=== PATIENT | female | born 1955 | race Caucasian/White ===

== ENCOUNTER 2020-04-04 15:15 | IRF | payer OTHER, MEDICARE, SELFPAY ==
[2020-04-04 15:10] VITALS: BP 101/66; PULSE 98; RESP 18; TEMP 36.8; O2SAT 99; BMI 21.9
--- NOTE | 2020-04-04 15:10 | ADMGEN ---
This patient, Usha Hardin, was admitted to [facility] Room 223-01. Patient/family oriented to hospital policies and general routines including ID bracelet, bed and alarms, visiting hours, pain management, procedures, bathroom and other care routines, personal items, smoking policy, room service/diet, and visiting hours. Valuables list has been completed. Information on how to activate the Rapid Response Team has been discussed. Patient/Family are encouraged to report perceived risks to care and to ask questions if they do not understand what they are told or what they should do.
--- NOTE | 2020-04-04 15:32 | ADMGEN ---
This patient, Usha Hardin, was admitted to [facility] Room 223-01. Patient/family oriented to hospital policies and general routines including ID bracelet, bed and alarms, visiting hours, pain management, procedures, bathroom and other care routines, personal items, smoking policy, room service/diet, and visiting hours. Valuables list has been completed. Information on how to activate the Rapid Response Team has been discussed. Patient/Family are encouraged to report perceived risks to care and to ask questions if they do not understand what they are told or what they should do. , transported by family car
[2020-04-04 16:48] VITALS: BMI 21.9
[2020-04-04] MEDS: FUROSEMIDE 40 MG TABLET PO (18:44)
[2020-04-04] MEDS: APIXABAN 5 MG TABLET PO (18:44)
[2020-04-04] MEDS: SACUBITRIL/VALSARTAN 49-51 MG TABLET 1 TABLET PO (18:44)
[2020-04-04] MEDS: metFORMIN HCL 500 MG TABLET PO (18:44)
[2020-04-04 18:45] VITALS: PULSE 82
[2020-04-04] MEDS: METOPROLOL TARTRATE 12.5 MG TABLET PO (18:45)
[2020-04-04] MEDS: SUCRALFATE 1 GM TABLET PO ×2 (18:45→20:21)
[2020-04-04 22:00] VITALS: BP 87/58; PULSE 91; RESP 18; TEMP 36.6; O2SAT 99
[2020-04-05 05:07] LABS: Glucose Point of Care 135 (65-105)
[2020-04-05 06:00] VITALS: BP 110/58; PULSE 72; RESP 16; TEMP 37.1; O2SAT 99
[2020-04-05 06:42] LABS: Basophils Absolute Auto 0.1 K/mm3 (0.0-0.1); Basophils Percent Auto 0.5 % (0.2-1.2); Eosinophils Absolute Auto 0.2 K/mm3 (0-0.3); Eosinophils Percent Auto 1.8 % (0-4.4); Hematocrit 42.1 % (37.0-47.0); Hemoglobin 13.8 g/dL (12.0-15.0); Immature Granulocyte Absolute 0.03 K/mm3 (0.00-0.031); Immature Granulocyte Percent A 0.3 % (0-0.5); Lymphocytes Absolute Auto 2.36 K/mm3 (0.9-3.2); Lymphocytes Percent Auto 22.8 % (18.3-44.2); Mean Corpuscular HGB Conc 32.8 g/dl (32-36); Mean Corpuscular Hemoglobin 29.7 pg (26-34); Mean Corpuscular Volume 90.7 fl (80-100); Mean Platelet Volume 10.8 fl (7.4-10.4); Monocytes Absolute Auto 0.8 K/mm3 (0.1-0.6); Monocytes Percent Auto 7.3 % (2.6-8.5); Neutrophils Percent Auto 67.3 % (45.5-73.1); Platelet Count Result 303 k/mm3 (150-375); Red Blood Count 4.64 M/mm3 (4.2-5.4); Red Cell Distribution Width 12.1 % (11.5-14.5); White Blood Count 10.4 K/mm3 (4.5-10.0)
[2020-04-05 06:58] LABS: Blood Urea Nitrogen 16 mg/dL (7-17); Carbon Dioxide 24 mmol/L (22-30); Chloride 105 mmol/L (98-107); Cholesterol 128 mg/dL (0-200); Estimated CRCL calculation 59 ml/min; Estimated Glomerular Filt Rate > 60; Glucose 125 mg/dL (65-105); HDL Direct 34 mg/dL; Sodium 137 mmol/L (137-145); Triglycerides 103 mg/dL (<150)
[2020-04-05 07:09] LABS: Hemoglobin A1C 7.1 % (<5.7); LDL Cholesterol Direct 69 mg/dL
[2020-04-05] MEDS: ATORVASTATIN 40 MG TABLET PO (08:53)
[2020-04-05] MEDS: APIXABAN 5 MG TABLET PO ×2 (08:53→17:56)
[2020-04-05] MEDS: FUROSEMIDE 40 MG TABLET PO ×2 (08:53→17:56)
[2020-04-05] MEDS: PANTOPRAZOLE 40 MG TABLET PO (08:54)
[2020-04-05] MEDS: PARoxetine 20 MG TABLET PO (08:54)
[2020-04-05] MEDS: PYRIDOXINE HCL 50 MG TABLET PO (08:54)
[2020-04-05] MEDS: ISONIAZID 100 MG TABLET 300 MG PO (08:54)
[2020-04-05] MEDS: metFORMIN HCL 500 MG TABLET PO ×2 (08:54→17:56)
[2020-04-05] MEDS: SACUBITRIL/VALSARTAN 49-51 MG TABLET 1 TABLET PO ×2 (08:55→17:56)
[2020-04-05] MEDS: SPIRONOLACTONE 25 MG TABLET PO (08:55)
[2020-04-05] MEDS: SUCRALFATE 1 GM TABLET PO ×4 (08:55→20:13)
[2020-04-05 13:43] VITALS: PULSE 72
[2020-04-05] MEDS: METOPROLOL TARTRATE 12.5 MG TABLET PO ×2 (13:43→20:14)
[2020-04-05 14:00] VITALS: BP 118/56; PULSE 78; RESP 18; TEMP 36.8; O2SAT 99
[2020-04-05 17:05] LABS: Glucose Point of Care 249 (65-105)
[2020-04-05 20:14] VITALS: PULSE 88
[2020-04-05 22:00] VITALS: BP 96/52; PULSE 82; RESP 18; TEMP 36.9; O2SAT 100
[2020-04-06 05:50] VITALS: BP 110/62; PULSE 85; RESP 18; TEMP 36.5; O2SAT 98
[2020-04-06 06:39] VITALS: PULSE 88
[2020-04-06] MEDS: METOPROLOL TARTRATE 12.5 MG TABLET PO ×3 (06:39→20:35)
[2020-04-06 06:52] LABS: Glucose Point of Care 142 (65-105)
[2020-04-06] MEDS: FUROSEMIDE 40 MG TABLET PO ×2 (09:08→17:44)
[2020-04-06] MEDS: ATORVASTATIN 40 MG TABLET PO (09:08)
[2020-04-06] MEDS: APIXABAN 5 MG TABLET PO ×2 (09:08→17:44)
[2020-04-06] MEDS: PANTOPRAZOLE 40 MG TABLET PO (09:09)
[2020-04-06] MEDS: ISONIAZID 100 MG TABLET 300 MG PO (09:09)
[2020-04-06] MEDS: metFORMIN HCL 500 MG TABLET PO ×2 (09:09→17:44)
[2020-04-06] MEDS: SPIRONOLACTONE 25 MG TABLET PO (09:10)
[2020-04-06] MEDS: PYRIDOXINE HCL 50 MG TABLET PO (09:10)
[2020-04-06] MEDS: SUCRALFATE 1 GM TABLET PO ×4 (09:10→20:36)
[2020-04-06] MEDS: PARoxetine 20 MG TABLET PO (09:10)
[2020-04-06] MEDS: SACUBITRIL/VALSARTAN 49-51 MG TABLET 1 TABLET PO ×2 (09:10→17:44)
[2020-04-06 11:49] LABS: Glucose Point of Care 128 (65-105)
[2020-04-06 13:23] VITALS: PULSE 88
--- NOTE | 2020-04-06 13:38 | WPDNEURORHBP ---
Subjective Date/time seen: S/P LMCA stroke withAF,Hypertension,Hyperlipidemia,andHypothyrodism,,ONelequis,S/PThrombectomy,04/06/20 13:38 Review of Systems Review of Systems: All systems reviewed & are unremarkable except as noted in HPI and below Functional Status Ambulation Ability Ability to Ambulate 10 Feet: Minimum Assistance X 1 Ability to Ambulate 50 Feet With 2 Turns: Minimum Assistance X 2 Ability to Ambulate 150 Feet: Minimum Assistance X 2 Ambulation Assistive Devices: None Exam Const: General: cooperative and no acute distress Eyes: General: appearance normal, both eyes and all related structures Neck: Neck: full ROM Resp: Effort & Inspection: normal respiratory effort Cardio: Rhythm: abnormal rhythm GI: Auscultation: normal bowel sounds Skin: General skin exam: no rashes or lesions noted Neuro: General: oriented to person Cranial nerves: Yes Equal, round and reactive pupils present, Yes Bilaterally intact EOM present and Yes Midline tongue present Speech: Abnormal speech present Motor exam (neuro): Abnormal motor strength present Sensory Exam: Sensory deficit (Neuro) Extrem: General: normal to inspection Psych: Appearance: grossly normal Objective Data Vital Signs Vital Signs: Vital Signs - 24 hr 04/05/20 13:43 04/05/20 14:00 04/05/20 20:14 Temperature 36.8 C Pulse Rate 72 78 88 Respiratory Rate 18 Blood Pressure 118/56 L Pulse Oximetry 99 04/05/20 22:00 04/06/20 05:50 04/06/20 06:39 Temperature 36.9 C 36.5 C Pulse Rate 82 85 88 Respiratory Rate 18 18 Blood Pressure 96/52 L 110/62 Pulse Oximetry 100 98 04/06/20 13:23 Temperature Pulse Rate 88 Respiratory Rate Blood Pressure Pulse Oximetry Intake/Output Intake/Output: Intake & Output 04/03/20 04/04/20 04/05/20 04/06/20 23:59 23:59 23:59 23:59 Intake Total 240 720 240 Balance 240 720 240 Meds/Results Medications: Active Medications Generic Name Dose Route Start Last Admin Trade Name Freq PRN Reason Stop Dose Admin Apixaban 5 mg 04/04/20 17:00 04/06/20 09:08 Eliquis PO 5 mg BID BK Administration Atorvastatin Calcium 40 mg 04/05/20 09:00 04/06/20 09:08 Lipitor PO 40 mg DAILY BK Administration Furosemide 40 mg 04/04/20 17:00 04/06/20 09:08 Lasix Tablet PO 40 mg BID BK Administration Isoniazid 300 mg 04/05/20 09:00 04/06/20 09:09 Isoniazid PO 05/05/20 09:01 300 mg DAILY BK Administration Metformin HCl 500 mg 04/04/20 17:00 04/06/20 09:09 Glucophage PO 500 mg BID BK Administration Metoprolol Tartrate 12.5 mg 04/05/20 14:00 04/06/20 13:23 Lopressor PO 12.5 mg Q8HR BK Administration Nitroglycerin 0.4 mg 04/04/20 16:14 Nitrostat Subl 0.4 Mg (1/150) SUBLINGUAL Q5M PRN Chest Pain Non-Formulary Medication 10 mg 04/05/20 09:00 Dapagliflozin [Farxiga] PO 05/05/20 09:01 DAILY BK Pantoprazole Sodium 40 mg 04/05/20 09:00 04/06/20 09:09 Protonix PO 40 mg QAM BK Administration Paroxetine HCl 20 mg 04/05/20 09:00 04/06/20 09:10 Paxil PO 20 mg QAM BK Administration Pyridoxine HCl 50 mg 04/05/20 09:00 04/06/20 09:10 Vitamin B-6 PO 50 mg DAILY BK Administration Sacubitril/Valsartan 1 tablet 04/04/20 17:00 04/06/20 09:10 Entresto 49 Mg-51 Mg Tablet PO 1 tablet BID [facility] Administration Spironolactone 25 mg 04/05/20 09:00 04/06/20 09:10 Aldactone PO 25 mg DAILY BK Administration Sucralfate 1 gm 04/04/20 17:00 04/06/20 13:23 Carafate PO 1 gm QID BK Administration Labs Labs: Laboratory Results - last 24 hr 04/05/20 04/06/20 04/06/20 16:55 06:21 11:37 POC Capillary Glucose 249 H 142 H 128 H Progress Note: A&P Assessment and Plan (1) CVA (cerebral vascular accident): Code(s): I63.9 - Cerebral infarction, unspecified Status: Acute (2) Atrial fibrillation: Code(s): I48.91 - Unspec
[2020-04-06 14:00] VITALS: BP 109/57; PULSE 82; RESP 20; TEMP 36.6; O2SAT 100
[2020-04-06 17:14] LABS: Glucose Point of Care 192 (65-105)
[2020-04-06 20:35] VITALS: PULSE 78
[2020-04-06 22:00] VITALS: BP 98/49; PULSE 77; RESP 18; TEMP 36.8; O2SAT 97
[2020-04-07 06:00] VITALS: BP 95/58; PULSE 66; RESP 19; TEMP 36.4; O2SAT 98
[2020-04-07 06:23] VITALS: PULSE 74
[2020-04-07] MEDS: METOPROLOL TARTRATE 12.5 MG TABLET PO ×2 (06:23→20:23)
[2020-04-07 07:03] LABS: Glucose Point of Care 144 (65-105)
[2020-04-07] MEDS: FUROSEMIDE 40 MG TABLET PO ×2 (09:18→17:43)
[2020-04-07] MEDS: ISONIAZID 100 MG TABLET 300 MG PO (09:18)
[2020-04-07] MEDS: ATORVASTATIN 40 MG TABLET PO (09:18)
[2020-04-07] MEDS: SACUBITRIL/VALSARTAN 49-51 MG TABLET 1 TABLET PO ×2 (09:18→17:43)
[2020-04-07] MEDS: SPIRONOLACTONE 25 MG TABLET PO (09:18)
[2020-04-07] MEDS: PANTOPRAZOLE 40 MG TABLET PO (09:18)
[2020-04-07] MEDS: PARoxetine 20 MG TABLET PO (09:18)
[2020-04-07] MEDS: metFORMIN HCL 500 MG TABLET PO ×2 (09:18→17:43)
[2020-04-07] MEDS: APIXABAN 5 MG TABLET PO ×2 (09:18→17:43)
[2020-04-07] MEDS: SUCRALFATE 1 GM TABLET PO ×4 (09:18→20:22)
[2020-04-07] MEDS: PYRIDOXINE HCL 50 MG TABLET PO (09:19)
--- NOTE | 2020-04-07 10:45 | RPD ---
INDIVIDUALIZED PLAN OF CARE FOR Usha Hardin Brief Synthesis of Pre-Admission Screen, Post-Admission Evaluation and Therapy Evaluations: The patient presents to rehab with a left MCA stroke. Comorbidities include atrial fibrillation, hypertension, hyperlipidemia, hypothyroidism, acute blood loss anemia, aphasia, dysphagia, status post thrombectomy, intraoperative right radial vasospasm, intraoperative left ICA vasospasm, coronary artery disease, heart failure with reduced EF, diabetes mellitus type 2, urinary tract infection, latent BP, and cytotoxic edema. The patient?s needs will be best met in an intensive program vs. at a lower level of care. The patient requires physician services for neurology services, medical oversight, and coordination of care. The patient needs physician monitoring and treatment of anemia, perioperative blood loss, intraoperative vasospasm with brachial artery dissection, urinary tract infection, monitoring for adverse reactions to new medications, monitoring of infection, and pain control. The patient requires nursing services for frequent neuro checks, anticoagulation therapy, medication management and education, pressure relief and skin care management, monitoring of labs, bowel and bladder training, diabetes management and education, IV administration, and fall/safety precautions. Deficits include:ADLs, Balance, Cognition, Endurance, Family Training/Education, Mobility, Pain Management, ROM, Safety, Speech, Strength, and Transfers. Change Room Attendant/Case Management for: Discharge Planning and Patient/Family Counseling Physical Therapy: 5 days per week for 60 minutes. Treatments may include: Therapeutic Exercise, Gait Training, Neuromuscular Re-education, Transfer Training, Community Reintegration, Bed Mobility, Patient/Family Education, Wheelchair Mobility Group Therapy/Concurrent Therapy Rationales: -Improve attention span during functional activities in a distracted environment. -Enhance problem solving and/or adequate judgment skills during functional activities in a distracted environment. -Promote increased safety awareness in a distracted environment to reduce fall risk with functional tasks, transfers, and ambulation to allow a more safe, self-sufficient return to the home environment. -Improve dynamic balance skills to promote safety and independence with functional activities in a distracted environment for maximum gain. Occupational Therapy: 5 days per week for 60 minutes. Treatments may include: Therapeutic Exercise, Therapeutic Activity, Cognitive Training, Self-Care Transfer Training, Community Reintegration, Home Management, Patient/Family Education, Wheelchair Mobility Training, Energy Conservation Training Group Therapy/Concurrent Therapy Rationales: -Allow therapist to observe and teach generalization and carry-over of skills learned in individual therapy. -Enhance problem solving and sequencing skills during therapeutic activities in a distracted environment. -Promote increased safety awareness in a realistic setting to reduce fall risk with functional tasks due to visual and verbal distractions. -Increase functional level with ADLs, ADL transfers and use of adaptive equipment through therapeutic activities with others while promoting safety to allow a more safe, self-sufficient return home. Speech Therapy: 5 days per week for 60 minutes. Treatments may include: Dysphasia Therapy, Speech/Language/Communication Therapy, Cognitive Training, Patient/Family Education Group Therapy/Concurrent Therapy - Rationale: -Allow therapist to observe and teach generalization and carry-over of skills learned in individual therapy. -Improve comprehension skills with complex or abstract ideas through discussion in a realistic setting. -Enhance problem solving skills with complex issues during activities in a distracted environment. -Promote increased memory skills and concentration in a distracted environment for a safe transition home
[2020-04-07 13:57] VITALS: BMI 21.9
[2020-04-07 14:00] VITALS: BP 72/58; PULSE 116; RESP 18; TEMP 36.7; O2SAT 97
--- NOTE | 2020-04-07 14:26 | PCNSR ---
On 04/07/20, the student, Viral Pal, provided care and completed [facility] documentation on this patient. I have reviewed the student's documentation and agree with the findings.
[2020-04-07 17:23] LABS: Glucose Point of Care 156 (65-105)
[2020-04-07 22:00] VITALS: BP 94/53; PULSE 84; RESP 20; TEMP 36.5; O2SAT 98
[2020-04-08 06:00] VITALS: BP 88/53; PULSE 88; RESP 16; TEMP 36.3; O2SAT 92
[2020-04-08 07:39] LABS: Glucose Point of Care 155 (65-105)
[2020-04-08 10:01] VITALS: PULSE 88
[2020-04-08] MEDS: metFORMIN HCL 500 MG TABLET PO ×2 (10:01→18:10)
[2020-04-08] MEDS: METOPROLOL TARTRATE 6.25 MG TABLET PO ×2 (10:01→20:55)
[2020-04-08] MEDS: SUCRALFATE 1 GM TABLET PO ×4 (10:01→20:54)
[2020-04-08] MEDS: metFORMIN HCL 250 MG TABLET PO ×2 (10:01→18:11)
[2020-04-08] MEDS: APIXABAN 5 MG TABLET PO ×2 (10:02→18:10)
[2020-04-08] MEDS: SACUBITRIL/VALSARTAN 49-51 MG TABLET 1 TABLET PO ×2 (10:02→18:11)
[2020-04-08] MEDS: SPIRONOLACTONE 25 MG TABLET PO (10:02)
[2020-04-08] MEDS: ATORVASTATIN 40 MG TABLET PO (10:02)
[2020-04-08] MEDS: ISONIAZID 100 MG TABLET 300 MG PO (10:03)
[2020-04-08] MEDS: FUROSEMIDE 40 MG TABLET PO ×2 (10:03→18:10)
[2020-04-08] MEDS: PARoxetine 20 MG TABLET PO (10:04)
[2020-04-08] MEDS: PYRIDOXINE HCL 50 MG TABLET PO (10:04)
[2020-04-08] MEDS: PANTOPRAZOLE 40 MG TABLET PO (10:04)
[2020-04-08 14:00] VITALS: BP 122/62; PULSE 78; RESP 18; TEMP 36.3; O2SAT 100
--- NOTE | 2020-04-08 14:20 | WPDNEURORHBP ---
Subjective Date/time seen: 04/08/20 14:20 Interval history: this 65-year-old woman is here due to stroke along with the history of atrial fibrillation she is doing fairly well denies any headache nausea and vomiting chest pain shortness of breath. Her blood sugar is relatively up so we had to increase the metformin does the blood pressure is also running relatively soft so we have cut back on her are metoprolol during the team conference she gets good fry with the PT and OT walking about 300 feet and her speech is also improving Review of Systems Review of Systems: All systems reviewed & are unremarkable except as noted in HPI and below Functional Status Ambulation Ability Ability to Ambulate 10 Feet: Standby Assistance Ability to Ambulate 50 Feet With 2 Turns: Standby Assistance Ability to Ambulate 150 Feet: Standby Assistance Ambulation Assistive Devices: None Transfers Ability Ability to Transfer In/Out of Chair: Standby Assistance Exam Const: General: comfortable and no acute distress HENMT: General nose exam: Normal nares present Mouth: Yes moist mucous membranes Eyes: General: appearance normal, both eyes and all related structures Neck: Neck: supple and no JVD Resp: Effort & Inspection: normal respiratory effort Auscultation: clear to auscultation bilaterally Cardio: Rate: regular rate Rhythm: regular rhythm GI: GI Palp: Yes Soft to palpation Auscultation: normal bowel sounds Skin: General skin exam: normal color and no rashes or lesions noted Neuro: Other: patient's overall neurological deficit is improving Extrem: General: normal to inspection Psych: Other: cognitive function is speech is improving Objective Data Vital Signs Vital Signs: Vital Signs - 24 hr 04/07/20 22:00 04/08/20 06:00 04/08/20 10:01 Temperature 36.5 C 36.3 C L Pulse Rate 84 88 88 Respiratory Rate 20 16 Blood Pressure 94/53 L 88/53 L Pulse Oximetry 98 92 Intake/Output Intake/Output: Intake & Output 04/05/20 04/06/20 04/07/20 04/08/20 23:59 23:59 23:59 23:59 Intake Total 720 720 720 480 Balance 720 720 720 480 Meds/Results Medications: Active Medications Generic Name Dose Route Start Last Admin Trade Name Freq PRN Reason Stop Dose Admin Apixaban 5 mg 04/04/20 17:00 04/08/20 10:02 Eliquis PO 5 mg BID BK Administration Atorvastatin Calcium 40 mg 04/05/20 09:00 04/08/20 10:02 Lipitor PO 40 mg DAILY BK Administration Furosemide 40 mg 04/04/20 17:00 04/08/20 10:03 Lasix Tablet PO 40 mg BID BK Administration Isoniazid 300 mg 04/05/20 09:00 04/08/20 10:03 Isoniazid PO 05/05/20 09:01 300 mg DAILY BK Administration Metformin HCl 500 mg 04/08/20 09:30 04/08/20 10:01 Glucophage PO 500 mg BID BK Administration Metformin HCl 250 mg 04/08/20 09:30 04/08/20 10:01 Glucophage PO 250 mg BID BK Administration Metoprolol Tartrate 6.25 mg 04/08/20 09:20 04/08/20 10:01 Lopressor PO 6.25 mg Q12HR BK Administration Nitroglycerin 0.4 mg 04/04/20 16:14 Nitrostat Subl 0.4 Mg (1/150) SUBLINGUAL Q5M PRN Chest Pain Non-Formulary Medication 10 mg 04/05/20 09:00 Dapagliflozin [Farxiga] PO 05/05/20 09:01 DAILY BK Pantoprazole Sodium 40 mg 04/05/20 09:00 04/08/20 10:04 Protonix PO 40 mg QAM BK Administration Paroxetine HCl 20 mg 04/05/20 09:00 04/08/20 10:04 Paxil PO 20 mg QAM BK Administration Pyridoxine HCl 50 mg 04/05/20 09:00 04/08/20 10:04 Vitamin B-6 PO 50 mg DAILY BK Administration Sacubitril/Valsartan 1 tablet 04/04/20 17:00 04/08/20 10:02 Entresto 49 Mg-51 Mg Tablet PO 1 tablet BID BK Administration Spironolactone 25 mg 04/05/20 09:00 04/08/20 10:02 Aldactone PO 25 mg DAILY BK Administration Sucralfate 1 gm 04/04/20 17:00 04/08/20 13:12 Carafate PO 1 gm QID BK Administration Labs Labs: Laboratory Results - las
[2020-04-08 16:49] LABS: Glucose Point of Care 156 (65-105)
[2020-04-08 20:55] VITALS: PULSE 80
[2020-04-08 22:00] VITALS: BP 94/59; PULSE 85; RESP 18; TEMP 36.9; O2SAT 100
[2020-04-09 05:53] VITALS: BP 99/55; PULSE 82; RESP 18; TEMP 37.1; O2SAT 98
[2020-04-09 07:13] LABS: Glucose Point of Care 141 (65-105)
[2020-04-09] MEDS: ISONIAZID 100 MG TABLET 300 MG PO (09:13)
[2020-04-09] MEDS: ATORVASTATIN 40 MG TABLET PO (09:13)
[2020-04-09] MEDS: FUROSEMIDE 40 MG TABLET PO ×2 (09:13→16:57)
[2020-04-09] MEDS: APIXABAN 5 MG TABLET PO ×2 (09:13→16:57)
[2020-04-09 09:14] VITALS: PULSE 80
[2020-04-09] MEDS: METOPROLOL TARTRATE 6.25 MG TABLET PO (09:14)
[2020-04-09] MEDS: metFORMIN HCL 500 MG TABLET PO ×2 (09:14→16:57)
[2020-04-09] MEDS: metFORMIN HCL 250 MG TABLET PO ×2 (09:14→16:57)
[2020-04-09] MEDS: PARoxetine 20 MG TABLET PO (09:15)
[2020-04-09] MEDS: SUCRALFATE 1 GM TABLET PO ×4 (09:15→20:41)
[2020-04-09] MEDS: SACUBITRIL/VALSARTAN 49-51 MG TABLET 1 TABLET PO ×2 (09:15→16:57)
[2020-04-09] MEDS: SPIRONOLACTONE 25 MG TABLET PO (09:15)
[2020-04-09] MEDS: PYRIDOXINE HCL 50 MG TABLET PO (09:15)
[2020-04-09] MEDS: PANTOPRAZOLE 40 MG TABLET PO (09:15)
--- NOTE | 2020-04-09 11:42 | REHAB_ITS ---
DATE OF SERVICE: 04/05/2020 The patient's primary rehab impairment category is stroke with etiological diagnosis of left middle cerebral artery stroke. The patient was seen [id number] on 04/05/2020 at 11:30 a.m. HISTORY AND PHYSICAL EXAMINATION: A 65-year-old right-handed female presented to the local hospital on 03/27/2020, with unresponsiveness and NIHSS of 29. Initial CT scan of the head was negative for the bleed. CTA revealed left middle cerebral artery LVO. The patient was not given tPA since she was on Eliquis for atrial fibrillation and was transferred to [facility] the same day, where she underwent a successful thrombectomy with T1, C1, and C3 flow after the 1st pass. 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 Thrombectomy was also complicated by the left ICA vasospasm and she was given arterial verapamil. Spasm was not present on repeat angio post thrombectomy. Anticoagulation with Eliquis was held, but following the stable repeat head CT has been repeated on 04/02/2020. TTE on 03/28, revealed a dilated left atrium and left ventricle with lateral wall akinesia with inferior mid septal hypokinesia and ejection fraction of 45% to 50%, but no thrombus and the bubble study was also negative. Neurology Team was following for permissive hypertension, and her home blood pressure medication had been held what was supposed to be given after her blood pressure allows. She continued on atorvastatin for hyperlipidemia and coronary artery disease. She initially failed her swallowing study, but had since been upgraded to regular diet with thin liquids. She completed the treatment with ceftriaxone for UTI. On 03/29/2020, she had an episode of atrial fibrillation with rapid ventricular response to 130s. She was given IV metoprolol. EKG revealed no signs of ischemic changes from the previous study. Home metoprolol was then restarted. Repeat thyroid studies revealed downtrending persistently elevated TSH. She has latent TB and was taking pyridoxine with isoniazid daily. She was not on isolation. Physical examination continued to reveal right-sided weakness, decreased gross motor control, and decreased safety awareness and balance impairment. She was discharged to rehab on heparin for DVT prophylaxis. Her active comorbid conditions included: 1. Atrial fibrillation. 2. Hypertension. 3. Hyperlipidemia. 4. Hypothyroidism. 5. History of latent TB, for which she is taking the treatment. Therapy was initiated at the acute care facility and the patient was transferred to us from [facility] on 04/04/2020. SURGERY OR FALLS: The patient has had thrombectomy this admission. Has had no falls in the past year and patient has had no falls with injury in the last year as well. PAST MEDICAL HISTORY: Atrial fibrillation, hypertension, hypothyroidism, hyperlipidemia, and latent TB. PAST SURGICAL HISTORY: Thrombectomy on this particular admission. SOCIAL HISTORY: She is lady. Nonsmoker. No alcohol or drug abuse. She lives with her in a 1-level house with partially finished basement. They spend most of the time in the basement. There are 3 steps to enter the house and 12-14 steps down to the basement. The patient was completely independent previously with no assistive device. She was energetic and bubbly. 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 The 's sister and mother also live with the patient and 's sister is available to assist also. FAMILY HISTORY: Noncontributory. PRIOR LEVEL OF FUNCTION: Eating was independent so as the oral care, toileting hygiene, shower and bathing, upper body dressing, lower body dressing, footwear, rolling left and righ
[2020-04-09 14:00] VITALS: BP 77/56; PULSE 65; RESP 18; TEMP 35.7; O2SAT 99
--- NOTE | 2020-04-09 14:30 | WPDNEURORHBP ---
Subjective Date/time seen: 04/09/20 14:30 Interval history: this 65-year-old woman is here post left hemispheric stroke, treated with thrombectomy of the left middle cerebral artery which was complicated by the medical artery dissection and also was a spasm of the internal carotid artery she has aphasia and right-sided hemiparesis from which she is improving she denies any headache nausea vomiting chest pain shortness of breath fever chills sore throat Review of Systems Review of Systems: All systems reviewed & are unremarkable except as noted in HPI and below Functional Status Ambulation Ability Ability to Ambulate 10 Feet: Independent Ability to Ambulate 50 Feet With 2 Turns: Independent Ability to Ambulate 150 Feet: Independent Ambulation Assistive Devices: None Transfers Ability Ability to Transfer In/Out of Chair: Independent Exam Const: General: comfortable and no acute distress HENMT: General nose exam: Normal nares present Mouth: Yes moist mucous membranes Eyes: General: appearance normal, both eyes and all related structures Neck: Neck: supple and no JVD Resp: Effort & Inspection: normal respiratory effort Auscultation: clear to auscultation bilaterally Cardio: Rate: regular rate Rhythm: regular rhythm GI: GI Palp: Yes Soft to palpation Auscultation: normal bowel sounds Skin: General skin exam: normal color and no rashes or lesions noted Neuro: Other: patient's aphasia and right-sided hemiparesis is improved Extrem: General: normal to inspection Psych: Other: due to aphasia hard to detect the psychological status however she is stable neither belligerent suicidal or combative she seems to be in a normal mood Objective Data Vital Signs Vital Signs: Vital Signs - 24 hr 04/08/20 20:55 04/08/20 22:00 04/09/20 05:53 Temperature 36.9 C 37.1 C Pulse Rate 80 85 82 Respiratory Rate 18 18 Blood Pressure 94/59 L 99/55 L Pulse Oximetry 100 98 04/09/20 09:14 04/09/20 14:00 Temperature 35.7 C L Pulse Rate 80 65 Respiratory Rate 18 Blood Pressure 77/56 L Pulse Oximetry 99 Intake/Output Intake/Output: Intake & Output 04/06/20 04/07/20 04/08/20 04/09/20 23:59 23:59 23:59 23:59 Intake Total 720 720 720 600 Balance 720 720 720 600 Meds/Results Medications: Active Medications Generic Name Dose Route Start Last Admin Trade Name Cesario PRN Reason Stop Dose Admin Apixaban 5 mg 04/04/20 17:00 04/09/20 09:13 Eliquis PO 5 mg BID BK Administration Atorvastatin Calcium 40 mg 04/05/20 09:00 04/09/20 09:13 Lipitor PO 40 mg DAILY BK Administration Furosemide 40 mg 04/04/20 17:00 04/09/20 09:13 Lasix Tablet PO 40 mg BID BK Administration Isoniazid 300 mg 04/05/20 09:00 04/09/20 09:13 Isoniazid PO 05/05/20 09:01 300 mg DAILY BK Administration Metformin HCl 500 mg 04/08/20 09:30 04/09/20 09:14 Glucophage PO 500 mg BID BK Administration Metformin HCl 250 mg 04/08/20 09:30 04/09/20 09:14 Glucophage PO 250 mg BID BK Administration Metoprolol Tartrate 6.25 mg 04/08/20 09:20 04/09/20 09:14 Lopressor PO 6.25 mg Q12HR BK Administration Nitroglycerin 0.4 mg 04/04/20 16:14 Nitrostat Subl 0.4 Mg (1/150) SUBLINGUAL Q5M PRN Chest Pain Non-Formulary Medication 10 mg 04/05/20 09:00 Dapagliflozin [Farxiga] PO 05/05/20 09:01 DAILY PENDING SALE TO [facility] Pantoprazole Sodium 40 mg 04/05/20 09:00 04/09/20 09:15 Protonix PO 40 mg QAM BK Administration Paroxetine HCl 20 mg 04/05/20 09:00 04/09/20 09:15 Paxil PO 20 mg QAM BK Administration Pyridoxine HCl 50 mg 04/05/20 09:00 04/09/20 09:15 Vitamin B-6 PO 50 mg DAILY BK Administration Sacubitril/Valsartan 1 tablet 04/04/20 17:00 04/09/20 09:15 Entresto 49 Mg-51 Mg Tablet PO 1 tablet BID BK Administration Spironolactone 25 mg 04/05/20 09:00 04/09/20 09:15 Aldactone PO 25 mg DAILY [facility]ENDING [facility] Administ
[2020-04-09 17:10] LABS: Glucose Point of Care 174 (65-105)
[2020-04-09 20:16] VITALS: BP 76/56; PULSE 70; RESP 18; TEMP 35.6; O2SAT 98
[2020-04-09 21:00] VITALS: BP 88/56; PULSE 90
[2020-04-10 06:00] VITALS: BP 85/48; PULSE 80; RESP 18; TEMP 35.2; O2SAT 98
[2020-04-10 07:25] LABS: Glucose Point of Care 150 (65-105)
[2020-04-10] MEDS: ATORVASTATIN 40 MG TABLET PO (10:19)
[2020-04-10] MEDS: APIXABAN 5 MG TABLET PO ×2 (10:19→17:45)
[2020-04-10] MEDS: FUROSEMIDE 40 MG TABLET PO ×2 (10:20→17:45)
[2020-04-10] MEDS: DOCUSATE SODIUM 100 MG CAPSULE PO ×2 (10:20→20:18)
[2020-04-10] MEDS: ISONIAZID 100 MG TABLET 300 MG PO (10:20)
[2020-04-10] MEDS: PARoxetine 20 MG TABLET PO (10:21)
[2020-04-10] MEDS: metFORMIN HCL 250 MG TABLET PO ×2 (10:21→17:45)
[2020-04-10] MEDS: metFORMIN HCL 500 MG TABLET PO ×2 (10:21→17:45)
[2020-04-10] MEDS: PANTOPRAZOLE 40 MG TABLET PO (10:21)
[2020-04-10] MEDS: PYRIDOXINE HCL 50 MG TABLET PO (10:22)
[2020-04-10] MEDS: polyethylene glycoL 3350 17 GM POWD.PACK PO (10:22)
[2020-04-10] MEDS: SACUBITRIL/VALSARTAN 49-51 MG TABLET 1 TABLET PO ×2 (10:22→17:45)
[2020-04-10] MEDS: SPIRONOLACTONE 25 MG TABLET PO (10:23)
[2020-04-10] MEDS: SUCRALFATE 1 GM TABLET PO ×4 (10:23→20:18)
[2020-04-10 14:00] VITALS: BP 102/60; PULSE 96; RESP 18; TEMP 36.3; O2SAT 99
[2020-04-10 17:43] LABS: Glucose Point of Care 149 (65-105)
[2020-04-10] MEDS: SENNA/DOCUSATE SODIUM TABLET 1 TAB PO (20:18)
[2020-04-10 22:00] VITALS: BP 99/66; PULSE 101; RESP 18; TEMP 36.1; O2SAT 97
[2020-04-11 06:00] VITALS: BP 95/66; PULSE 95; RESP 18; TEMP 35.1; O2SAT 97
[2020-04-11 06:41] LABS: Glucose Point of Care 172 (65-105)
[2020-04-11] MEDS: APIXABAN 5 MG TABLET PO ×2 (08:40→18:19)
[2020-04-11] MEDS: DOCUSATE SODIUM 100 MG CAPSULE PO ×2 (08:41→20:21)
[2020-04-11] MEDS: ATORVASTATIN 40 MG TABLET PO (08:41)
[2020-04-11] MEDS: ISONIAZID 100 MG TABLET 300 MG PO (08:41)
[2020-04-11] MEDS: FUROSEMIDE 40 MG TABLET PO ×2 (08:41→18:19)
[2020-04-11] MEDS: SACUBITRIL/VALSARTAN 49-51 MG TABLET 1 TABLET PO ×2 (08:42→18:19)
[2020-04-11] MEDS: polyethylene glycoL 3350 17 GM POWD.PACK PO (08:42)
[2020-04-11] MEDS: metFORMIN HCL 250 MG TABLET PO ×2 (08:42→18:19)
[2020-04-11] MEDS: metFORMIN HCL 500 MG TABLET PO ×2 (08:42→18:19)
[2020-04-11] MEDS: SPIRONOLACTONE 25 MG TABLET PO (08:42)
[2020-04-11] MEDS: PYRIDOXINE HCL 50 MG TABLET PO (08:42)
[2020-04-11] MEDS: PANTOPRAZOLE 40 MG TABLET PO (08:42)
[2020-04-11] MEDS: SUCRALFATE 1 GM TABLET PO ×4 (08:43→20:21)
[2020-04-11] MEDS: PARoxetine 20 MG TABLET PO (08:46)
--- NOTE | 2020-04-11 12:15 | WPDNEURORHBP ---
Subjective Date/time seen: 04/11/20 12:15 Interval history: this 65-year-old woman is here due to stroke with aphasia and right-sided weakness she is working with speech PT OT and gait training pleasant and continue to improve overall she denies any headache nausea vomiting chest pain or shortness of breath fever chills sore throat Review of Systems Review of Systems: All systems reviewed & are unremarkable except as noted in HPI and below Functional Status Ambulation Ability Ability to Ambulate 10 Feet: Independent Ability to Ambulate 50 Feet With 2 Turns: Standby Assistance Ability to Ambulate 150 Feet: Independent Ambulation Assistive Devices: None Transfers Ability Ability to Transfer In/Out of Chair: Independent Exam Const: General: comfortable and no acute distress HENMT: General nose exam: Normal nares present Mouth: Yes moist mucous membranes Eyes: General: appearance normal, both eyes and all related structures Neck: Neck: supple and no JVD Resp: Effort & Inspection: normal respiratory effort Auscultation: clear to auscultation bilaterally Cardio: Rate: regular rate Rhythm: regular rhythm GI: GI Palp: Yes Soft to palpation Auscultation: normal bowel sounds Skin: General skin exam: normal color and no rashes or lesions noted Neuro: Other: patient's overall neurological status improving including the speech defect and right-sided hemiparesis Extrem: General: normal to inspection Psych: Other: aphasia improving and right-sided weakness improved Objective Data Vital Signs Vital Signs: Vital Signs - 24 hr 04/10/20 14:00 04/10/20 22:00 04/11/20 06:00 Temperature 36.3 C L 36.1 C L 35.1 C L Pulse Rate 96 101 H 95 Respiratory Rate 18 18 18 Blood Pressure 102/60 99/66 L 95/66 L Pulse Oximetry 99 97 97 Intake/Output Intake/Output: Intake & Output 04/08/20 04/09/20 04/10/20 04/11/20 23:59 23:59 23:59 23:59 Intake Total 720 840 600 120 Balance 720 840 600 120 Meds/Results Medications: Active Medications Generic Name Dose Route Start Last Admin Trade Name Freq PRN Reason Stop Dose Admin Apixaban 5 mg 04/04/20 17:00 04/11/20 08:40 Eliquis PO 5 mg BID BK Administration Atorvastatin Calcium 40 mg 04/05/20 09:00 04/11/20 08:41 Lipitor PO 40 mg DAILY BK Administration Docusate Sodium 100 mg 04/10/20 09:00 04/11/20 08:41 Colace Capsule PO 100 mg Q12HR BK Administration Furosemide 40 mg 04/04/20 17:00 04/11/20 08:41 Lasix Tablet PO 40 mg BID BK Administration Isoniazid 300 mg 04/05/20 09:00 04/11/20 08:41 Isoniazid PO 05/05/20 09:01 300 mg DAILY BK Administration Metformin HCl 500 mg 04/08/20 09:30 04/11/20 08:42 Glucophage PO 500 mg BID BK Administration Metformin HCl 250 mg 04/08/20 09:30 04/11/20 08:42 Glucophage PO 250 mg BID BK Administration Metoprolol Tartrate 6.25 mg 04/08/20 09:20 04/09/20 09:14 Lopressor PO 6.25 mg Q12HR BK Administration Nitroglycerin 0.4 mg 04/04/20 16:14 Nitrostat Subl 0.4 Mg (1/150) SUBLINGUAL Q5M PRN Chest Pain Non-Formulary Medication 10 mg 04/05/20 09:00 Dapagliflozin [Farxiga] PO 05/05/20 09:01 DAILY BK Pantoprazole Sodium 40 mg 04/05/20 09:00 04/11/20 08:42 Protonix PO 40 mg QAM BK Administration Paroxetine HCl 20 mg 04/05/20 09:00 04/11/20 08:46 Paxil PO 20 mg QAM BK Administration Polyethylene Glycol 17 gm 04/10/20 09:00 04/11/20 08:42 Miralax PO 17 gm QAM BK Administration Pyridoxine HCl 50 mg 04/05/20 09:00 04/11/20 08:42 Vitamin B-6 PO 50 mg DAILY BK Administration Sacubitril/Valsartan 1 tablet 04/04/20 17:00 04/11/20 08:42 Entresto 49 Mg-51 Mg Tablet PO 1 tablet BID BK Administration Senna/Docusate Sodium 1 tab 04/10/20 21:00 04/10/20 20:18 Senokot S Tablet PO 1 tab HS [facility] Administration Spironolactone 25 mg 04/05/20 09:00
--- NOTE | 2020-04-11 13:11 | PCDIET ---
Nutrition Follow-Up Complete: Nutrition Diagnosis: Altered nutrition related labs related to diabetes mellitus as evidenced by POC Capillary Glucose of 144 mg/dL Nutrition Goal: Patient to consume 75% or more of meals Goal in progress. Intake records reveal average of 85% of meals consumed since 04/07/20; however, patient's reports she has not been eating very well. 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 Patient agreeable to try Glucerna (220kcal, 10g protein) daily for supplemental nutrition. Agree with diabetic, heart healthy diet. Last recorded weight is 57.8 kg. Recommend obtaining new weight. Bowel Motility: Last reported BM on 04/04/20. RN aware and Colace/Miralax/Senna started 04/10/20. Encouraged patient to increase fluid/fiber intake. Labs Reviewed: Glu (172) Meds Noted: Colace, Lasix, Glucophage, Protonix, Miralax, Vitamin B6, Senna, Aldactone, Sucralfate Additional Notes: No open sores documented. Will continue to monitor with same goal. Nutrition Monitoring and Evaluation: Follow up in 5 days.
[2020-04-11 14:00] VITALS: BP 101/65; PULSE 90; RESP 20; TEMP 37.2; O2SAT 96
[2020-04-11 18:17] LABS: Glucose Point of Care 145 (65-105)
[2020-04-11] MEDS: SENNA/DOCUSATE SODIUM TABLET 1 TAB PO (20:21)
[2020-04-11 21:35] VITALS: BP 100/61; PULSE 73; RESP 20; TEMP 36.9; O2SAT 97
[2020-04-11 22:00] VITALS: BP 100/61; PULSE 73; RESP 20; TEMP 36.9; O2SAT 97
[2020-04-12 05:05] LABS: Basophils Percent Auto 0.4 % (0.2-1.2); Eosinophils Absolute Auto 0.1 K/mm3 (0-0.3); Eosinophils Percent Auto 1.1 % (0-4.4); Hemoglobin 15.6 g/dL (12.0-15.0); Immature Granulocyte Absolute 0.03 K/mm3 (0.00-0.031); Immature Granulocyte Percent A 0.3 % (0-0.5); Lymphocytes Absolute Auto 2.89 K/mm3 (0.9-3.2); Lymphocytes Percent Auto 25.5 % (18.3-44.2); Mean Corpuscular HGB Conc 33.9 g/dl (32-36); Mean Corpuscular Hemoglobin 29.5 pg (26-34); Mean Corpuscular Volume 87.1 fl (80-100); Mean Platelet Volume 11.3 fl (7.4-10.4); Monocytes Absolute Auto 0.7 K/mm3 (0.1-0.6); Neutrophils Absolute Auto 7.6 K/mm3 (1.3-6.7); Neutrophils Percent Auto 66.7 % (45.5-73.1); Platelet Count Result 277 k/mm3 (150-375); Red Blood Count 5.28 M/mm3 (4.2-5.4); Red Cell Distribution Width 12.2 % (11.5-14.5); White Blood Count 11.3 K/mm3 (4.5-10.0)
[2020-04-12 05:35] VITALS: BP 86/51; PULSE 61; RESP 18; TEMP 36.6; O2SAT 98
[2020-04-12 06:56] LABS: Glucose Point of Care 380 (65-105)
[2020-04-12 06:57] LABS: Glucose Point of Care 157 (65-105)
[2020-04-12 07:14] LABS: Anion Gap 12.8 mmol/L (7-16); Blood Urea Nitrogen 51 mg/dL (7-17); Calcium 9.2 mg/dL (8.4-10.2); Carbon Dioxide 30 mmol/L (22-30); Chloride 94 mmol/L (98-107); Estimated CRCL calculation 31 ml/min; Estimated Glomerular Filt Rate 38; Glucose 142 mg/dL (65-105); Potassium 3.8 mmol/L (3.4-5.0); Sodium 133 mmol/L (137-145)
[2020-04-12] MEDS: ISONIAZID 100 MG TABLET 300 MG PO (08:34)
[2020-04-12] MEDS: DOCUSATE SODIUM 100 MG CAPSULE PO ×2 (08:34→20:02)
[2020-04-12] MEDS: FUROSEMIDE 40 MG TABLET PO ×2 (08:34→17:20)
[2020-04-12] MEDS: APIXABAN 5 MG TABLET PO ×2 (08:34→17:20)
[2020-04-12] MEDS: ATORVASTATIN 40 MG TABLET PO (08:34)
[2020-04-12] MEDS: metFORMIN HCL 500 MG TABLET PO ×2 (08:35→17:20)
[2020-04-12] MEDS: PANTOPRAZOLE 40 MG TABLET PO (08:35)
[2020-04-12] MEDS: polyethylene glycoL 3350 17 GM POWD.PACK PO (08:35)
[2020-04-12] MEDS: metFORMIN HCL 250 MG TABLET PO ×2 (08:35→17:20)
[2020-04-12] MEDS: PARoxetine 20 MG TABLET PO (08:35)
[2020-04-12] MEDS: SPIRONOLACTONE 25 MG TABLET PO (08:36)
[2020-04-12] MEDS: SACUBITRIL/VALSARTAN 49-51 MG TABLET 1 TABLET PO ×2 (08:36→17:20)
[2020-04-12] MEDS: PYRIDOXINE HCL 50 MG TABLET PO (08:36)
[2020-04-12] MEDS: SUCRALFATE 1 GM TABLET PO ×4 (08:36→20:02)
--- NOTE | 2020-04-12 13:33 | WPDNEURORHBP ---
Subjective Date/time seen: 04/12/20 13:33 Interval history: this 65-year-old is here because of the left hemispheric stroke right-sided hemiparesis she has improved to a point that she is going to be discharged on April 13, 2020 she denies any headache nausea vomiting chest pain shortness of breath fever chills sore throat Review of Systems Review of Systems: All systems reviewed & are unremarkable except as noted in HPI and below Functional Status Ambulation Ability Ability to Ambulate 10 Feet: Independent Ability to Ambulate 50 Feet With 2 Turns: Independent Ability to Ambulate 150 Feet: Independent Ambulation Assistive Devices: None Transfers Ability Ability to Transfer In/Out of Chair: Independent Exam Const: General: comfortable and no acute distress HENMT: General nose exam: Normal nares present Mouth: Yes moist mucous membranes Eyes: General: appearance normal, both eyes and all related structures Neck: Neck: supple and no JVD Resp: Effort & Inspection: normal respiratory effort Auscultation: clear to auscultation bilaterally Cardio: Rate: regular rate Rhythm: regular rhythm GI: GI Palp: Yes Soft to palpation Auscultation: normal bowel sounds Skin: General skin exam: normal color and no rashes or lesions noted Neuro: Other: aphasia and right-sided hemiparesis is improving Extrem: General: normal to inspection Psych: Mental Status: mental status grossly normal Objective Data Vital Signs Vital Signs: Vital Signs - 24 hr 04/12/20 14:00 04/12/20 22:00 04/13/20 06:00 Temperature 36.8 C 36.3 C L 37.0 C Pulse Rate 80 98 72 Respiratory Rate 16 17 18 Blood Pressure 113/87 93/54 L 96/56 L Pulse Oximetry 92 98 97 04/13/20 08:00 Temperature Pulse Rate 70 Respiratory Rate 18 Blood Pressure Pulse Oximetry 98 Intake/Output Intake/Output: Intake & Output 04/10/20 04/11/20 04/12/20 04/13/20 23:59 23:59 23:59 23:59 Intake Total 600 600 820 240 Balance 600 600 820 240 Meds/Results Medications: Active Medications Generic Name Dose Route Start Last Admin Trade Name Freq PRN Reason Stop Dose Admin Apixaban 5 mg 04/04/20 17:00 04/13/20 08:57 Eliquis PO 5 mg BID BK Administration Atorvastatin Calcium 40 mg 04/05/20 09:00 04/13/20 08:57 Lipitor PO 40 mg DAILY BK Administration Docusate Sodium 100 mg 04/10/20 09:00 04/13/20 08:57 Colace Capsule PO 100 mg Q12HR BK Administration Furosemide 40 mg 04/04/20 17:00 04/13/20 08:57 Lasix Tablet PO 40 mg BID BK Administration Isoniazid 300 mg 04/05/20 09:00 04/13/20 08:57 Isoniazid PO 05/05/20 09:01 300 mg DAILY BK Administration Metformin HCl 500 mg 04/08/20 09:30 04/13/20 08:58 Glucophage PO 500 mg BID BK Administration Metformin HCl 250 mg 04/08/20 09:30 04/13/20 08:58 Glucophage PO 250 mg BID BK Administration Metoprolol Tartrate 6.25 mg 04/08/20 09:20 04/09/20 09:14 Lopressor PO 6.25 mg Q12HR BK Administration Nitroglycerin 0.4 mg 04/04/20 16:14 Nitrostat Subl 0.4 Mg (1/150) SUBLINGUAL Q5M PRN Chest Pain Non-Formulary Medication 10 mg 04/05/20 09:00 Dapagliflozin [Farxiga] PO 05/05/20 09:01 DAILY BK Pantoprazole Sodium 40 mg 04/05/20 09:00 04/13/20 08:57 Protonix PO 40 mg QAM BK Administration Paroxetine HCl 20 mg 04/05/20 09:00 04/13/20 08:57 Paxil PO 20 mg QAM BK Administration Polyethylene Glycol 17 gm 04/10/20 09:00 04/13/20 08:55 Miralax PO 17 gm QAM BK Administration Pyridoxine HCl 50 mg 04/05/20 09:00 04/13/20 08:58 Vitamin B-6 PO 50 mg DAILY BK Administration Sacubitril/Valsartan 1 tablet 04/04/20 17:00 04/13/20 08:58 Entresto 49 Mg-51 Mg Tablet PO 1 tablet BID BK Administration Senna/Docusate Sodium 1 tab 04/10/20 21:00 04/12/20 20:01 Senokot S Tablet PO 1 tab HS [facility] Administration Spironolactone 25 mg 04/05/20
[2020-04-12] MEDS: SODIUM CHLORIDE 0.9% IV 1,000 ML 100 ML IV CONT (13:52)
[2020-04-12 14:00] VITALS: BP 113/87; PULSE 80; RESP 16; TEMP 36.8; O2SAT 92
[2020-04-12] MEDS: SENNA/DOCUSATE SODIUM TABLET 1 TAB PO (20:01)
[2020-04-12 22:00] VITALS: BP 93/54; PULSE 98; RESP 17; TEMP 36.3; O2SAT 98
[2020-04-13 05:34] LABS: Basophils Percent Auto 0.4 % (0.2-1.2); Eosinophils Absolute Auto 0.1 K/mm3 (0-0.3); Eosinophils Percent Auto 1.3 % (0-4.4); Hematocrit 43.7 % (37.0-47.0); Hemoglobin 14.8 g/dL (12.0-15.0); Immature Granulocyte Absolute 0.03 K/mm3 (0.00-0.031); Immature Granulocyte Percent A 0.3 % (0-0.5); Lymphocytes Absolute Auto 2.84 K/mm3 (0.9-3.2); Lymphocytes Percent Auto 25.4 % (18.3-44.2); Mean Corpuscular HGB Conc 33.9 g/dl (32-36); Mean Corpuscular Hemoglobin 29.9 pg (26-34); Mean Corpuscular Volume 88.3 fl (80-100); Mean Platelet Volume 11.8 fl (7.4-10.4); Monocytes Absolute Auto 0.7 K/mm3 (0.1-0.6); Monocytes Percent Auto 6.1 % (2.6-8.5); Neutrophils Absolute Auto 7.5 K/mm3 (1.3-6.7); Neutrophils Percent Auto 66.5 % (45.5-73.1); Platelet Count Result 232 k/mm3 (150-375); Red Blood Count 4.95 M/mm3 (4.2-5.4); Red Cell Distribution Width 12.5 % (11.5-14.5); White Blood Count 11.2 K/mm3 (4.5-10.0)
[2020-04-13 05:48] LABS: Alanine Aminotransferase 42 U/L (4-35); Albumin Level 3.8 g/dL (3.5-5.1); Alkaline Phosphatase 116 U/L (38-126); Anion Gap 13.3 mmol/L (7-16); Aspartate Amino Transferase 41 U/L (14-36); Bilirubin,Total 0.7 mg/dL (0.2-1.3); Blood Urea Nitrogen 41 mg/dL (7-17); Calcium 8.9 mg/dL (8.4-10.2); Carbon Dioxide 27 mmol/L (22-30); Chloride 94 mmol/L (98-107); Estimated CRCL calculation 33 ml/min; Estimated Glomerular Filt Rate 41; Glucose 132 mg/dL (65-105); Potassium 3.3 mmol/L (3.4-5.0); Sodium 131 mmol/L (137-145)
[2020-04-13 06:00] VITALS: BP 96/56; PULSE 72; RESP 18; TEMP 37; O2SAT 97
[2020-04-13 06:48] LABS: Glucose Point of Care 165 (65-105)
[2020-04-13 08:00] VITALS: PULSE 70; RESP 18; O2SAT 98
[2020-04-13] MEDS: polyethylene glycoL 3350 17 GM POWD.PACK PO (08:55)
[2020-04-13] MEDS: FUROSEMIDE 40 MG TABLET PO (08:57)
[2020-04-13] MEDS: DOCUSATE SODIUM 100 MG CAPSULE PO (08:57)
[2020-04-13] MEDS: ISONIAZID 100 MG TABLET 300 MG PO (08:57)
[2020-04-13] MEDS: PANTOPRAZOLE 40 MG TABLET PO (08:57)
[2020-04-13] MEDS: APIXABAN 5 MG TABLET PO (08:57)
[2020-04-13] MEDS: ATORVASTATIN 40 MG TABLET PO (08:57)
[2020-04-13] MEDS: PARoxetine 20 MG TABLET PO (08:57)
[2020-04-13] MEDS: SPIRONOLACTONE 25 MG TABLET PO (08:58)
[2020-04-13] MEDS: SUCRALFATE 1 GM TABLET PO ×2 (08:58→12:32)
[2020-04-13] MEDS: metFORMIN HCL 250 MG TABLET PO (08:58)
[2020-04-13] MEDS: metFORMIN HCL 500 MG TABLET PO (08:58)
[2020-04-13] MEDS: SACUBITRIL/VALSARTAN 49-51 MG TABLET 1 TABLET PO (08:58)
[2020-04-13] MEDS: PYRIDOXINE HCL 50 MG TABLET PO (08:58)
--- NOTE | 2020-04-13 13:17 | WPDNEURORHBP ---
Subjective Date/time seen: 04/13/20 13:17 Interval history: Patient is status post to thrombectomy with complications as mentioned in my history is left with aphasia and right-sided hemiparesis from which she has improved significantly in fact the speech defect has improved a point she is able to comprehend fairly well and doing well as for as the right-sided hemiparesis concerned she denies any headache nausea vomiting chest pain or shortness of breath The patient's laboratory profile is better as for as the renal status concern she was not drinking and os and now she is drinking quite motivated to go will check the labs now patient still have follow-up with Neurology primary care physician and the other physicians involved with her care Review of Systems Review of Systems: All systems reviewed & are unremarkable except as noted in HPI and below Functional Status Ambulation Ability Ability to Ambulate 10 Feet: Independent Ability to Ambulate 50 Feet With 2 Turns: Independent Ability to Ambulate 150 Feet: Independent Ambulation Assistive Devices: None Transfers Ability Ability to Transfer In/Out of Chair: Independent Exam Const: General: comfortable and no acute distress HENMT: General nose exam: Normal nares present Mouth: Yes moist mucous membranes Eyes: General: appearance normal, both eyes and all related structures Neck: Neck: supple and no JVD Resp: Effort & Inspection: normal respiratory effort Auscultation: clear to auscultation bilaterally Cardio: Rate: regular rate Rhythm: regular rhythm GI: GI Palp: Yes Soft to palpation Auscultation: normal bowel sounds Skin: General skin exam: normal color and no rashes or lesions noted Neuro: Other: the patient's speech has improved likewise the right-sided hemiparesis has improved Extrem: General: normal to inspection Psych: Mental Status: mental status grossly normal Objective Data Vital Signs Vital Signs: Vital Signs - 24 hr 04/12/20 14:00 04/12/20 22:00 04/13/20 06:00 Temperature 36.8 C 36.3 C L 37.0 C Pulse Rate 80 98 72 Respiratory Rate 16 17 18 Blood Pressure 113/87 93/54 L 96/56 L Pulse Oximetry 92 98 97 04/13/20 08:00 Temperature Pulse Rate 70 Respiratory Rate 18 Blood Pressure Pulse Oximetry 98 Intake/Output Intake/Output: Intake & Output 04/10/20 04/11/20 04/12/20 04/13/20 23:59 23:59 23:59 23:59 Intake Total 600 600 820 240 Balance 600 600 820 240 Meds/Results Medications: Active Medications Generic Name Dose Route Start Last Admin Trade Name Cesario PRN Reason Stop Dose Admin Apixaban 5 mg 04/04/20 17:00 04/13/20 08:57 Eliquis PO 5 mg BID BK Administration Atorvastatin Calcium 40 mg 04/05/20 09:00 04/13/20 08:57 Lipitor PO 40 mg DAILY BK Administration Docusate Sodium 100 mg 04/10/20 09:00 04/13/20 08:57 Colace Capsule PO 100 mg Q12HR BK Administration Furosemide 40 mg 04/04/20 17:00 04/13/20 08:57 Lasix Tablet PO 40 mg BID BK Administration Isoniazid 300 mg 04/05/20 09:00 04/13/20 08:57 Isoniazid PO 05/05/20 09:01 300 mg DAILY BK Administration Metformin HCl 500 mg 04/08/20 09:30 04/13/20 08:58 Glucophage PO 500 mg BID BK Administration Metformin HCl 250 mg 04/08/20 09:30 04/13/20 08:58 Glucophage PO 250 mg BID BK Administration Metoprolol Tartrate 6.25 mg 04/08/20 09:20 04/09/20 09:14 Lopressor PO 6.25 mg Q12HR BK Administration Nitroglycerin 0.4 mg 04/04/20 16:14 Nitrostat Subl 0.4 Mg (1/150) SUBLINGUAL Q5M PRN Chest Pain Non-Formulary Medication 10 mg 04/05/20 09:00 Dapagliflozin [Farxiga] PO 05/05/20 09:01 DAILY BK Pantoprazole Sodium 40 mg 04/05/20 09:00 04/13/20 08:57 Protonix PO 40 mg QAM BK Administration Paroxetine HCl 20 mg 04/05/20 09:00 04/13/20 08:57 Paxil PO 20 mg QAM BK Administration Polyethylene Glycol 17 gm 04/10/20 09:00 04/13
--- NOTE | 2020-04-18 10:28 | DS_ITS ---
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 DISCHARGE ACTIVE COMORBID CONDITIONS: 1. Atrial fibrillation. 2. Hypertension. 3. Hyperlipidemia. 4. Hypothyroidism. REASON FOR ADMISSION: A 65-year-old right-handed female, initially presented to the local hospital on 03/27/2020 with unresponsiveness and NIHSS of 29. Initial CT scan of the head was negative for the bleed. CTA documented a left middle cerebral artery occlusion. She did not receive tPA since she was on Eliquis for atrial fibrillation and was transferred to [facility] same day, where she underwent successful thrombectomy with T1, C1, and C3 flow after the 1st pass. 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 Thrombectomy was complicated by the left IC vasospasm and she was given arterial verapamil. Spasm was not present on repeat angio post thrombectomy. Anticoagulation was held, but following a stable repeat head CT on 04/02/2020, and TTE on 03/28/2020. It was restarted. Her TTE revealed a dilated left atrium, left ventricle, lateral wall akinesia with inferior mid septal hypokinesia and ejection fraction of 45% to 50%, but no thrombus and the bubble study was also negative. She received a permissive hypertension. Home blood pressure medications were held. She was continued atorvastatin for hyperlipidemia and coronary artery disease. She initially failed her swallowing study, but then subsequently she was upgraded to regular diet with thin liquids. She completed a course of ceftriaxone for UTI. On 03/29/2020, she was noted to have an episode of atrial fibrillation with rapid ventricular response to 130s. At that time, she received IV metoprolol. EKG revealed no ischemic changes compared to the previous study. Metoprolol was restarted. Repeat thyroid study documented persistently elevated TSH. She also had a latent TB and has been taking pyridoxine with isoniazid daily. She was not on isolation. Physical examination continued to reveal right-sided weakness, decreased gross motor control, decreased safety awareness and balance impairment and she was discharged to rehab on heparin for DVT prophylaxis. Initial level of function at the time of admission here revealed her to have need of supervision for eating, oral hygiene, toileting, bathing, upper body dressing, lower body dressing, footwear and lying to sit, sit to stand, chair transfer, toilet transfer, car transfer. She was independent rolling in bed. She required only setup to sit to lying and partial assistance for walking 10 feet, 50 feet, 150 feet, curb or step, 4 steps, 12 steps, and required supervision for walking 10 feet on uneven surfaces, and picking up object, wheelchair was not applicable. ANTICIPATED REHAB GOALS AT THE TIME OF ADMISSION: To make her independent in all the modalities. LEVEL OF FUNCTION AT THE TIME OF DISCHARGE: She became independent in eating and toileting, required setup for the oral hygiene, bathing, upper body dressing, lower body dressing, footwear. She became independent rolling in bed, sit to lying, lying to sit, sit to stand, chair transfer, toilet transfer, car transfer, 10 feet walking, 50 feet walking with 2 turns, 150 feet walking. She required only setup for 10 feet walking on uneven surfaces, supervision only for curb or step, 4 steps, 12 steps, and became independent picking up the object. HOSPITAL COURSE: During the hospitalization, she was involved actively in physical therapy and occupational therapy on a regular basis. At the time of discharge, she was able to ambulate independently 10 feet, 50 feet with 2 turns independently, 150 feet independently, and she was able to get in out of ch
== END 2020-04-13 14:49 | disposition home or self-care (01) | DRG 57 ==
PROVIDERS: Admitting Provider Psychiatry & Neurology Neurology; PCP Nurse Practitioner; Visit Provider Psychiatry & Neurology Neurology
DX: I69.351 Hemiplegia and hemiparesis following cerebral infarction affecting right dominant side (principal); I69.320 Aphasia following cerebral infarction; I69.391 Dysphagia following cerebral infarction; R13.10 Dysphagia, unspecified; R26.89 Other abnormalities of gait and mobility; I48.91 Unspecified atrial fibrillation; I11.0 Hypertensive heart disease with heart failure; I50.9 Heart failure, unspecified; E78.5 Hyperlipidemia, unspecified; E03.9 Hypothyroidism, unspecified; E11.9 Type 2 diabetes mellitus without complications; I25.10 Atherosclerotic heart disease of native coronary artery without angina pectoris; Z87.820 Personal history of traumatic brain injury; Z79.01 Long term (current) use of anticoagulants; Z79.82 Long term (current) use of aspirin; Z91.81 History of falling; Z79.84 Long term (current) use of oral hypoglycemic drugs
CPT/HCPCS: 36415; 80048; 80053; 80061; 83036; 85025; 92507; 92523; 92610; 97110; 97112; 97116; 97161; 97165; 97530; 97535; A9270; J7030

== ENCOUNTER 2023-02-15 17:23 | Emergency (ER) | payer MEDICARE, SELFPAY ==
--- NOTE | ~2023-02-15 | XR_ITS ---
EXAMINATION: XR chest 2V Exam Date/Time: 02/15/2023 18:05 CDT HISTORY: COUGH/CONGESTION/SOB 1 WEEK. AFIB/STROKE. SMOKER. Comparison: None. RESULT: Lines, tubes, and devices: None. Lungs and pleura: Moderate diffuse reticulonodular opacities and cuffing. Cardiomediastinal silhouette: Marked cardiomegaly. Other: No acute osseous or upper abdominal finding. IMPRESSION: Pulmonary opacities may represent bronchiolitis, as can be seen with atypical infection, asthma, aspi ration, and small airways disease. Reviewed, dictated and finalized at location K. IMPRESSION: Pulmonary opacities may represent bronchiolitis, as can be seen with atypical i nfection, asthma, aspiration, and small airways disease.
[2023-02-15 17:30] VITALS: BP 152/99; PULSE 94; RESP 20; TEMP 36.5; O2SAT 98
--- NOTE | 2023-02-15 18:03 | ED.GENADULT ---
HPI - General Adult General Chief complaint: Upper Respiratory Infection Stated complaint: cough /sinus /throat Source: patient and family Mode of arrival: ambulatory Limitations: no limitations History of Present Illness HPI narrative: Patient presents for evaluation of sick symptoms. Symptom onset 7-10 days ago. She reports cough, mild sore throat, and mild shortness of breath. No fever, chills, nausea, vomiting. Her sister recently had sick symptoms but she cannot tell me what those symptoms are. Pt has underlying hx of HTN, a fib anticoagulated with xarelto, hyperlipidemia, CHF, CAD s/p NV and CVA, hyperlipidemia, DM, and is a 1 ppd smoker. She is not taking any medication to assist with her symptoms. Last a1c 6.7. She does not check home BS. Related Data Home Medications Medication Instructions Recorded Confirmed apixaban 5 mg tablet (Eliquis) 5 mg PO BID 04/04/20 04/04/20 atorvastatin 40 mg tablet 40 mg PO DAILY 04/04/20 04/04/20 dapagliflozin 10 mg tablet 10 mg PO DAILY 04/04/20 04/04/20 (Farxiga) furosemide 40 mg tablet (Lasix) 40 mg PO BID 04/04/20 04/04/20 isoniazid 300 mg tablet 300 mg PO DAILY 04/04/20 04/04/20 metformin 500 mg tablet 500 mg PO BID 04/04/20 04/04/20 metoprolol tartrate 25 mg tablet 12.5 mg PO Q6H 04/04/20 04/04/20 nitroglycerin 0.4 mg sublingual 0.4 mg sublingual Q5M PRN Chest 04/04/20 04/04/20 tablet Pain pantoprazole 40 mg tablet,delayed 40 mg PO QAM 04/04/20 04/04/20 release paroxetine HCl 20 mg tablet (Paxil) 20 mg PO QAM 04/04/20 04/04/20 pyridoxine (vitamin B6) 50 mg 50 mg PO DAILY 04/04/20 04/04/20 tablet sacubitril 49 mg-valsartan 51 mg 1 tablet PO BID 04/04/20 04/04/20 tablet (Entresto) spironolactone 25 mg tablet 25 mg PO DAILY 04/04/20 04/04/20 sucralfate 1 gram tablet (Carafate) 1 g PO QID 04/04/20 04/04/20 alendronate 70 mg tablet mg PO 02/15/23 levothyroxine 175 mcg tablet mcg 02/15/23 Allergies Allergy/AdvReac Type Severity Reaction Status Date / Time No Known Allergies Allergy Unverified 08/29/18 11:14 Review of Systems Review of Systems: CONSTITUTIONAL: Denies fever, chills, or sweats. EYES: Denies visual changes, redness, or discharge. ENT: Reports mild sore throat. Denies otalgia. CARDIOVASCULAR: Denies chest pain, palpitations, or edema. RESPIRATORY: Reports cough and mild shortness of breath GASTROINTESTINAL: Denies abdominal pain, nausea, vomiting, or diarrhea. GENITOURINARY: Denies dysuria or hematuria. SKIN: Denies rash or itching. MUSCULOSKELETAL: Denies back pain, joint pain, or myalgia. NEUROLOGIC: Denies headache, numbness, dizziness, or weakness. PSYCHIATRIC: Denies anxiety or depression. [facility] Past Medical History Medical History (Updated 02/15/23 @ 18:45 by Jonathan Jean-Baptiste [facility], ) Atrial fibrillation CVA (cerebral vascular accident) Hemiparesis of right dominant side Hyperlipidemia Hypertension Hypothyroidism Hypothyroidism Myocardial infarction Surgical History Surgical History No pertinent past surgical history Family History Family History Father Acute myocardial infarction Sibling Hypertension Mother Diabetes mellitus Colon cancer Social History Social History (Updated 02/15/23 @ 18:07 by Jonathan Jean-Baptiste [facility]) Smoking packs per day: 1 Smoking cigarettes per day: 20.0 Smoking status: Current every day smoker Tobacco type: cigarettes Second hand tobacco smoke exposure: Yes Alcohol intake: former Substance use: never Gender identity (if verbalized by the patient): Female Spiritual care concerns: No Exam Narrative: GENERAL: Smells strongly of cigarette smoke. Well-appearing, well-nourished, and in no acute distress. HEAD: Normocephalic, atraumatic. EYES: PERRLA and EOMI. ENT: Nares clear, no rhinorrhea or epistaxis. Mucous membranes moist. Orophary
[2023-02-15] MEDS: ALBUTEROL SULFATE NEB 2.5 MG/3 ML INH INHALATION (18:16)
[2023-02-15] MEDS: IPRATROPIUM BR 0.02% INH SOLN 0.5 MG/2.5 ML VIAL INHALATION (18:16)
[2023-02-15] MEDS: methylPREDNISolone SOD SUCC 125 MG VIAL IM (18:17)
[2023-02-15 18:40] VITALS: PULSE 88; RESP 16; O2SAT 97
== END 2023-02-15 18:55 | disposition home or self-care (01) ==
PROVIDERS: Emergency Provider Nurse Practitioner
DX: J06.9 Acute upper respiratory infection, unspecified (principal); F17.210 Nicotine dependence, cigarettes, uncomplicated; Z20.822 Contact with and (suspected) exposure to COVID-19; I48.91 Unspecified atrial fibrillation; E78.5 Hyperlipidemia, unspecified; E03.9 Hypothyroidism, unspecified; I69.351 Hemiplegia and hemiparesis following cerebral infarction affecting right dominant side; I25.2 Old myocardial infarction; I25.10 Atherosclerotic heart disease of native coronary artery without angina pectoris; I11.0 Hypertensive heart disease with heart failure; I50.9 Heart failure, unspecified; E11.9 Type 2 diabetes mellitus without complications; Z79.01 Long term (current) use of anticoagulants
CPT/HCPCS: 71046; 87426; 87804; 94640; 96372; 99213; C9803; G0463; J2930